=== PATIENT | female | born 1995 | race Asian ===

== ENCOUNTER 2021-08-12 02:37 | Emergency (ER) | payer BC ==
[~2021-08-12] VITALS: Ht 162.6 cm; Wt 50.8 kg
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
[2021-08-12] MEDS ORDERED: IBUPROFEN 400 MG TABLET ONE (03:18)
[2021-08-12] MEDS ORDERED: IBUPROFEN 400 MG TABLET PO ONE (03:30)
--- NOTE | 2021-08-12 04:34 | NUR ---
Patient discharged to home in stable condition. Written and verbal after care instructions given. Patient verbalizes understanding of instruction. PT ambulatory with a steady gait
[2021-08-12 04:35] VITALS: BP 115/71
== END 2021-08-12 04:35 | disposition home or self-care (01) ==
LOC: ER 02:45
DX: R07.89 Other chest pain (principal); V89.2XXA Person injured in unspecified motor-vehicle accident, traffic, initial encounter; Y93.89 Activity, other specified; Y92.89 Other specified places as the place of occurrence of the external cause; Y99.8 Other external cause status
CPT/HCPCS: 71045-TC